=== PATIENT | female | born 1945 | race Caucasian/White ===

== ENCOUNTER 2020-06-27 17:27 | Emergency (ER) | payer MEDICARE, MEDICAID ==
[~2020-06-27] VITALS: Ht 160 cm; Wt 50.0 kg
[2020-06-27 17:41] VITALS: BP 160/90
[2020-06-27] MEDS ORDERED: AZIT250T2 PO (18:41)
[2020-06-27] MEDS ORDERED: ALBU6.7H9 INH (18:41)
[2020-06-27] MEDS ORDERED: PRED20TA PO (18:41)
== END 2020-06-27 18:52 | disposition home or self-care (01) ==
LOC: ER 17:28
DX: J40 Bronchitis, not specified as acute or chronic (principal); R06.02 Shortness of breath; R51.9 Headache, unspecified; R05 Cough; Z20.822 Contact with and (suspected) exposure to COVID-19; M43.6 Torticollis; F17.200 Nicotine dependence, unspecified, uncomplicated; F12.90 Cannabis use, unspecified, uncomplicated; F15.90 Other stimulant use, unspecified, uncomplicated; Z79.2 Long term (current) use of antibiotics; Z79.899 Other long term (current) drug therapy
CPT/HCPCS: 36415; 71045; 87635; 99284

== ENCOUNTER 2024-04-23 15:43 | Emergency (ER) | payer BC, MEDICAID ==
[~2024-04-23] VITALS: Ht 162.6 cm; Wt 40.5 kg
[~2024-04-23 15:43] MED LIST: ALBU6.7H14 INH
[2024-04-23 16:07] VITALS: BP 118/73; PULSE 125; O2SAT 93
[2024-04-23 16:22] LABS: BASOPHILS # (AUTO) 0.1 X10'3 (0-0.2); BASOPHILS % (AUTO) 0.5 % (0-1); EOSINOPHILS # (AUTO) 0.1 X10'3 (0-0.9); EOSINOPHILS % (AUTO) 0.7 % (0-6); HEMATOCRIT 43.9 % (35.0-45.0); HEMOGLOBIN 14.7 g/dl (12.0-16.0); LYMPHOCYTES # (AUTO) 0.5 X10'3 (1.1-4.8); LYMPHOCYTES % (AUTO) 4.9 % (21-51); MEAN CORPUSCULAR HEMOGLOBIN 29.9 PG (27.0-31.0); MEAN CORPUSCULAR HGB CONC 33.4 g/dL (33.0-36.5); MEAN CORPUSCULAR VOLUME 89.5 FL (78-98); MEAN PLATELET VOLUME 8.9 FL (7.4-10.4); MONOCYTES # (AUTO) 0.6 X10'3 (0-0.9); MONOCYTES % (AUTO) 5.7 % (2-12); NEUTROPHILS # (AUTO) 9.2 X10'3 (1.8-7.7); NEUTROPHILS % (AUTO) 88.2 % (42-75); PLATELET COUNT 278 X10'3 (140-440); RED CELL DISTRIBUTION WIDTH 14.3 % (11.5-14.5); WHITE BLOOD COUNT 10.5 X10'3 (4.5-11.0)
[2024-04-23 16:44] LABS: ALBUMIN 3.2 G/DL (3.4-5.0); ANION GAP 10 (8-16); BLOOD UREA NITROGEN 30 MG/DL (7-18); BUN/CREATININE RATIO 19.6 (10.0-20.0); CALCIUM 9.1 MG/DL (8.5-10.1); CHLORIDE 99 MMOL/L (99-107); CREATININE 1.53 MG/DL (0.40-0.90); GLUCOSE 250 MG/DL (70-104); POTASSIUM 3.5 MMOL/L (3.5-5.1); PRO BRAIN NATRIURETIC PEPTIDE 429 PG/ML (0-450); SODIUM 135 MMOL/L (135-145); TOTAL CARBON DIOXIDE 25.6 MMOL/L (24-32); eCRCL 19 ML/MIN; eGFR 33 ML/MIN
[2024-04-23 18:43] VITALS: RESP 18
[2024-04-23] MEDS: DOXYCYCLINE 100MG CAPSULE PO STA (18:49)
[2024-04-23] MEDS: predniSONE 20 mg tablet PO ONE (18:49)
[2024-04-23] MEDS ORDERED: DOXY100T2 PO (18:50)
[2024-04-23] MEDS ORDERED: IPRA4AER INH (18:50)
[2024-04-23] MEDS ORDERED: PRED10TA23 PO (18:50)
[2024-04-23 19:05] VITALS: TEMP 99.1
== END 2024-04-23 19:13 | disposition home or self-care (01) ==
LOC: ER 15:43
DX: J44.1 Chronic obstructive pulmonary disease with (acute) exacerbation (principal); F17.200 Nicotine dependence, unspecified, uncomplicated; F12.90 Cannabis use, unspecified, uncomplicated; F15.90 Other stimulant use, unspecified, uncomplicated; Z79.899 Other long term (current) drug therapy
CPT/HCPCS: 36415; 71045; 73030; 80048; 83880; 84484; 85025; 93005; 99285; J7512

== ENCOUNTER 2024-12-21 12:55 | Emergency (ER) | payer BC, MEDICAID ==
[~2024-12-21] VITALS: Ht 162.6 cm; Wt 50.0 kg
[~2024-12-21 12:55] MED LIST changes: +DOXY100T2 PO
[2024-12-21 12:57] VITALS: BP 112/55; PULSE 74; RESP 16; TEMP 99; O2SAT 94
--- NOTE | 2024-12-21 13:12 | Physician Documentation ---
History of Present Illness ~ General Stated Complaint: HEAT RELATED Time Seen by MD: 12:58 Source: patient, EMS, EMS notes reviewed Mode of Arrival: EMS Exam Limitations: no limitations History of Present Illness Initial Comments Chief Complaint: None Caveat: None Independent Historians: Paramedics History of Present Illness: Patient is a 79-year-old woman who is homeless and brought in by paramedics from the street. The call was called out for gener alized weakness. Patient was laying down on the ground when medics arrived. The patient does not know who called the ambulance. Patient denies any dizziness. Patient denies falling or passing out. Patient denies any pain. Patient denies any symptoms acute illness other than maybe feeling generally weak. No chest pain, no shortness a breath, no nausea vomiting diarrhea, no abdominal pain. Review of systems: All systems were reviewed and are negative except for what is indicated in the history of present illness. Past Medical History: Patient Denies but she likely has COPD. Past Surgical History: Noncontributory Social History: Homeless, tobacco use, Medications: Reviewed as documented Nursing Notes Allergies: Reviewed as documented in Nursing Notes Medication Reconciliation Allergies: Coded Allergies: No Known Allergies (Unverified , 12/21/24) Scheduled Albuterol Sulfate (Proventil Hfa), 2 PUFFS INH Q6H Doxycycline Hyclate (Doxycycline Hyclate), 1 TAB PO Q12H Past Medical History Past Medical History: No Pertinent History Past Surgical History: no surgical history Alcohol Use: None Drug Use: marijuana, methamphetamine Review of Systems All Other Systems at this time: Reviewed and Negative ROS Patient denies any other acute symptoms other than above. All other systems are negative Physical Exam Physical Exam Pulse Oximetry Reflects: adequate oxygenation Physical Exam General Appearance: No distress, disheveled, poor hygiene HEENT: Normal OP, moist oral mucosa, PERRL, EOMI Neck: supple, normal ROM, trachea midline Pulmonary: No respiratory distress, CTA, BS equal Cardiac: RRR, no murmur, rub or gallop, GI: nondistended, soft, nontender, normal bowel sounds, no guarding, no rebound Extremities: normal ROM, no swelling, non-tender Skin: intact, dry, warm, no rashes Neuro: AAOx3, speech is clear, no focal motor weakness Psych: normal affect, good eye contact, no apparent hallucination, normal speech Progress Results/Orders Results/Orders Orders - WOODY GARCIA MD Urinalysis, Cult If Indicated (12/21/24 13:05) Monitor (12/21/24 13:05) Completed Orders - WOODY GARCIA MD Cbc/Diff (12/21/24 13:05) CMP (12/21/24 13:05) Vital Signs 12/21/24 12/21/24 12:57 13:14 Temp 99.0 Pulse 74 Resp 16 B/P (MAP) 112/55 Pulse Ox 94 O2 Flow Rate 0 Laboratory Tests Test 12/21/24 13:26 White Blood Count 13.3 H Red Blood Count 4.26 Hemoglobin 12.4 Hematocrit 36.7 Mean Corpuscular Volume 86.2 Mean Corpuscular Hemoglobin 29.1 Mean Corpuscular Hemoglobin Concent 33.8 Red Cell Distribution Width 13.9 Platelet Count 157 Mean Platelet Volume 8.9 Neutrophils (%) (Auto) 91.2 H Lymphocytes (%) (Auto) 2.4 L Monocytes (%) (Auto) 6.1 Eosinophils (%) (Auto) 0 Basophils (%) (Auto) 0.3 Neutrophils # (Auto) 12.1 H Lymphocytes # (Auto) 0.3 L Monocytes # (Auto) 0.8 Eosinophils # (Auto) 0.0 Basophils # (Auto) 0.0 CBC Comment Sodium Level 128 L Potassium Level 3.7 Chloride Level 96 L Carbon Dioxide Level 22.6 L Anion Gap 9 Blood Urea Nitrogen 26 H Creatinine 1.61 H Estimated GFR/1.73 m2 31 BUN/Creatinine Ratio 16.1 Glucose Level 110 H Calcium Level 8.0 L Total Bilirubin 0.9 Aspartate Amino Transf (AST/SGOT) 17 Alanine Aminotransferase (ALT/SGPT) 20 Alkaline Phosphatase 98 Total Protein 7.2 Albumin 2.8 L Globulin 4.4 H Albumin/Globulin Ratio 0.6 L Chemistry Comments Medical Decision Making Findings Differential diagnosis includes but is not limited to: Medical screening exam, dehydration, electrolyte abnormalities, urinary tract infection, other infection EKG independent interpretation: Chest x-ray, single view, indication: Independent interpretation: Laboratory data independent interpretation: CBC: Leukocytosis of 13.3, otherwise unremarkable CMP: Emergency department course/medical decision-making: Patient is a 79-year-old woman who is homeless brought in by paramedics for suppose it generalized weakness. However the patient has no complaints. Patient has a mountain bike with her here. Proximally 20 minutes after I evaluated the patient she eloped from the emergency department out of the ambulance [place] with her bike. Patient left without any review of her test results and without any discharge instructions. There was no evidence of a medical or surgical emergency. Departure Disposition: 07 LEFT AWOL/ELOPED Impression: Primary Impression: Encounter for medical screening examination Referrals: NO PRIMARY CARE PROVIDER (PCP) Signature Scribe Signature: No scribe Attestation: No scribe WOODY GARCIA MD Dec 21, 2024 13:12
[2024-12-21 13:40] LABS: MEAN PLATELET VOLUME 8.9 FL (7.4-10.4); RED CELL DISTRIBUTION WIDTH 13.9 % (11.5-14.5)
[2024-12-21 14:18] LABS: CREATININE 1.61 MG/DL (0.40-0.90); TOTAL CARBON DIOXIDE 22.6 MMOL/L (24-32); eCRCL 23 ML/MIN; eGFR 31 ML/MIN
--- NOTE | 2024-12-21 15:36 | ELECTROCARDIOGRAPH REPORT ---
[facility] Test Date: 2024-12-21 Test Time: 13:09:37 Pat Name: LISSA DURANT Department: PRE/OP CARDIOLOGY Room: Gender: F Car Driver: : 1945 Requested By: WOODY GARCIA Order Number: [id number] Reading MD: Dr. NISREEN Ordoñez Measurements Intervals [place] Rate: 88 P: 89 IN: 166 QRS: 64 QRSD: 115 T: 259 QT: 393 QTc: 476 Interpretive Statements Sinus rhythm Atrial premature complex Right atrial enlargement Incomplete left bundle branch block Probable LVH with secondary repol abnrm Anteroseptal infarct, possibly acute Electronically Signed On 12-21-2024 17:27:[address] NISREEN Ordoñez Please click the below link to view image of tracing.
== END 2024-12-21 13:42 | disposition left against medical advice (07) ==
LOC: ER 12:56
DX: Z13.89 Encounter for screening for other disorder (principal); R53.1 Weakness; F12.90 Cannabis use, unspecified, uncomplicated; F15.90 Other stimulant use, unspecified, uncomplicated; Z59.00 Homelessness unspecified; Z79.899 Other long term (current) drug therapy
CPT/HCPCS: 36415; 80053; 85025; 93005; 99284